=== PATIENT | female | born 1995 | race Caucasian/White ===

== ENCOUNTER 2020-03-09 16:01 | Day surgery (SDC) | payer BC, SELFPAY ==
[~2020-03-09 16:01] MED LIST: Bupivacaine/Epinephrine 0.25% 30 ML VIAL ONE; Dexamethasone 20 MG/5 ML VIAL ONE; Lidocaine 1% PF 5 ML VIAL ONE; Ondansetron PF 4 MG/2 ML Vial ONE; PROPOFOL 200 MG/20 ML VIAL ONE; Succinylcholine Chloride 20 MG/ML 10 ml SYRINGE FS ONE
[2020-03-09] MEDS ORDERED: Sodium Chloride 0.9% 10 ML ONE (16:15)
[2020-03-09] MEDS ORDERED: Midazolam HCl 2 mg/2 ml Vial ONE (16:17)
[2020-03-09] MEDS ORDERED: Fentanyl 100 MCG/2 ML VIAL ONE ×2 (16:20→17:43)
--- NOTE | 2020-03-09 17:58 | PDOC.CONS ---
- Consultation Encounter Date: 03/09/20 Encounter Time: 17:05 CHIEF COMPLAINT: Abdominal pain HISTORY OF PRESENT ILLNESS: 24-year-old female presented to an outside emergency department with 1 day history of abdominal pain. The pain is located in the right lower quadrant and is described as aching. The patient denies nausea, vomiting, or diarrhea. She does endorse a recent history of constipation. Her work-up in the outside emergency department was consistent with acute appendicitis. He was transferred to [facility] for surgical management. REVIEW OF SYSTEMS: General: Denies recent weight changes, fever, or chills. Eyes: Denies visual changes, pain, or irritation ENT: Denies changes in hearing, nasal discharge, or sore throat Cardiovascular: Denies chest pain, palpitations, shortness of breath, or edema. Respiratory: Denies cough, shortness of breath, or wheezing Gastrointestinal: Denies abdominal pain, nausea, or vomiting. Genitourinary: Denies frequent urination or dysuria Musculoskeletal: Denies pain or restricted motion Integumentary: Denies abnormal rashes, sores, or skin lesions Neurological: Denies numbness, tingling, or weakness. Psychiatric: Denies new onset anxiety or depression Endocrine: Denies temperature intolerances, polyuria, or excessive thirst Hematologic: Denies abnormal bruising or bleeding PAST MEDICAL HISTORY: Denies PAST SURGICAL HISTORY: Right wrist surgery FAMILY HISTORY: Distant relatives with heart disease SOCIAL HISTORY non- smoker, denies illicit drug use, endorses occasional alcohol consumption. ALLERGIES: Penicillins PHYSICAL EXAM: Vital Signs: HR 82 BP 136/85 T 97.7 RR 16 SpO2 100% room air General: Alert and oriented, no acute distress ENT: Sclera anicteric, pupils equal and reactive, mucous membranes moist Neck: No jugular venous distention, trachea midline Cardiovascular: Regular rate and rhythm Pulmonary: Clear to auscultation Abdominal: Soft, nondistended, mild tenderness to palpation in the right lower quadrant with no evidence of peritonitis Genitourinary: Normal anatomy Rectal: Deferred Integument: No abnormal rashes or lesions Musculoskeletal: No gross deformities or edema, normal range of motion LABORATORY: Laboratory analysis reviewed and demonstrates a normal white blood cell count of 4.3. IMAGING: Radiology report reviewed and demonstrates a dilated appendix at 11 mm with no evidence of perforation or complication. ASSESSMENT: 24-year-old female with acute appendicitis PLAN: Plan for laparoscopic appendectomy. The relative risks and benefits of this procedure were discussed in detail with the patient, specifically addressing the risk of damage to adjacent structures and abscess formation. Informed consent was obtained. Plan for discharge home from postoperative recovery unit.
--- NOTE | 2020-03-09 17:59 | PDOC.OP ---
Operative Note - Operative Note Operative Note: DATE OF SURGERY: March 09, 2020 SURGEON: Bassam Cruz MD PREOPERATIVE DIAGNOSIS: Acute appendicitis without abscess POSTOPERATIVE DIAGNOSIS: Acute appendicitis without abscess PROCEDURE: Laparoscopic appendectomy INDICATIONS: 24-year-old female with a 1 day history of abdominal pain associated with constipation. Their work-up was consistent with acute appendicitis. The relative risks and benefits of laparoscopic appendectomy were discussed in detail with the patient, specifically addressing the risk of abscess formation, staple line leak, and damage to adjacent structures. Informed consent was obtained. PROCEDURE IN DETAIL: The patient was brought to the operating room and positioned supine on the operating room table. After induction of general, endotracheal anesthesia, the patient was prepared and draped in the usual fashion. Prior to beginning the procedure, a complete timeout was performed with all members of the operative team being present and in agreement. Access to the abdomen was obtained in the left upper quadrant using an optical trocar under direct visualization. The abdomen was insufflated, and additional trochars placed under direct visualization. The abdominal cavity was examined and inflammation was noted in the right lower quadrant. The appendix was located and surrounding adhesions divided to allow medial mobilization and retraction toward the abdominal wall. A window was created between the base of the appendix and the mesoappendix using blunt dissection and minimal electrocautery. The base of the appendix was identified by the confluence of the tinea. The appendix was divided using a single fire of a blue staple load. The mesoappendix was fired using a single white staple load. The specimen was placed in a retrieval bag and the abdominal cavity examined with hemostasis achieved. The bag was removed from the abdominal cavity, and the specimen passed off for pathological examination. The 12 mm trocar site fascia was closed using a 0-Vicryl tie utilizing a suture passer. The skin was closed with 4-0 Monocryl suture and dressed with skin adhesive dressing. At the conclusion of the case, all sponge and instrument counts were correct. ESTIMATED BLOOD LOSS: Minimal COMPLICATIONS: None INTRAOPERATIVE BLOOD TRANSFUSIONS: None GRAFTS / IMPLANTS: None SPECIMENS: Appendix DISPOSITION: The patient was transported to the postoperative recovery unit in good condition, to be discharged home when criteria are met.
[2020-03-09] MEDS ORDERED: HYDROcodone/Acetaminophen 5/325 mg Tablet ONE (18:15)
== END 2020-03-09 18:45 | disposition home or self-care (01) ==
LOC: SDC 16:01
PROVIDERS: ATTEND Surgery
PROC: 0DTJ4ZZ Resection of Appendix, Percutaneous Endoscopic Approach (ICD-10-PCS; principal; 2020-03-09)
DX: K35.80 Unspecified acute appendicitis (principal); Z88.0 Allergy status to penicillin
CPT/HCPCS: 88304; J1100; J2250; J2405; J2704; J3010